=== PATIENT | female | born 1950 | race Caucasian/White ===

== ENCOUNTER → 2017-02-06 | Outpatient (CLI) | payer OTHER | LOC: MMPC 09:00 | PROVIDERS: ATTEND Nurse Practitioner Family | DX: B18.2 Chronic viral hepatitis C (principal); I10 Essential (primary) hypertension; F32.9 Major depressive disorder, single episode, unspecified; E66.9 Obesity, unspecified; R87.610 Atypical squamous cells of undetermined significance on cytologic smear of cervix (ASC-US); Z80.0 Family history of malignant neoplasm of digestive organs | CPT/HCPCS: G0101; G0439; G0463 ==

== ENCOUNTER → 2017-02-07 | Outpatient (CLI) | payer OTHER ==
[2017-02-07 10:48] LABS: BASOPHILS # (AUTO) 0.01 10*3/UL; BASOPHILS % (AUTO) 0.1 % (0-1); EOSINOPHILS # (AUTO) 0 10*3/UL; EOSINOPHILS % (AUTO) 0 % (0-8); HEMATOCRIT 44.6 % (37.0-47.0); HEMOGLOBIN 15.1 g/dL (12.0-16.0); LYMPHOCYTES # (AUTO) 3.34 10*3/uL; MEAN CORPUSCULAR HEMOGLOBIN 29.5 PG (27-31); MEAN CORPUSCULAR HGB CONC 33.9 g/dL (33-37); MEAN CORPUSCULAR VOLUME 87.1 FL (81-99); MEAN PLATELET VOLUME 8.9 FL (7.4-12.2); MONOCYTES # (AUTO) 1.04 10*3/UL (0.3-0.8); MONOCYTES % (AUTO) 9.3 % (5-15); NEUTROPHILS # (AUTO) 6.75 10*3/UL; NEUTROPHILS % (AUTO) 60.4 % (50-80); RED BLOOD COUNT 5.12 10^6/uL (4.20-5.40)
[2017-02-07 10:55] LABS: PLATELET MORPHOLOGY COMMENT NORMAL MORPHOLOGY (NORM); RBC MORPHOLOGY COMMENT NORMAL MORPHOLOGY (NORM); WBC MORPHOLOGY COMMENT NORMAL MORPHOLOGY (NORM)
[2017-02-07 11:08] LABS: BLOOD UREA NITROGEN 14 mg/dL (7-22); CALCIUM 8.9 mg/dL (8.7-10.7); EST GLOMERULAR FILTRATION > 60 (>60 ml/min/1.73m(2)); SERUM ALBUMIN 3.9 g/dL (3.5-4.8)
[2017-02-07 11:56] LABS: CHOL/HDL RATIO 3.71 RATIO (0-4.0); LDL CHOLESTEROL,CALCULATED 89.4 mg/dL
== END ==
LOC: LAB 10:27
PROVIDERS: ATTEND Nurse Practitioner Family
DX: I10 Essential (primary) hypertension (principal); E66.9 Obesity, unspecified; B18.2 Chronic viral hepatitis C; F32.0 Major depressive disorder, single episode, mild; Z80.0 Family history of malignant neoplasm of digestive organs
CPT/HCPCS: 36415; 80053; 80061; 84443; 85025

== ENCOUNTER → 2017-02-10 | Outpatient (CLI) | payer OTHER | LOC: MMPC 11:11 | PROVIDERS: ATTEND Surgery | DX: Z80.0 Family history of malignant neoplasm of digestive organs (principal) | CPT/HCPCS: 99202; G0463 ==

== ENCOUNTER 2017-02-24 07:46 | Day surgery (SDC) | payer OTHER ==
[~2017-02-24 07:46] MED LIST: LIDOCAINE W/ SODIUM BICARB 0.5 ML SYR ONE; Lactated Ringers 1,000 ML PRIMARY IV ONE
[2017-02-24] MEDS ORDERED: Lactated Ringers 1,000 ML PRIMARY IV ONE (09:12)
[2017-02-24] MEDS ORDERED: IPRATROPIUM/ALBUTEROL SULFATE 3 ML NEB NEB PRN (09:34)
[2017-02-24] MEDS ORDERED: IPRATROPIUM/ALBUTEROL SULFATE 3 ML NEB NEB ONE (09:37)
--- NOTE | 2017-02-24 09:40 | GEN.OPNOTE ---
Colonoscopy Procedure Note Surgery Date: 02/24/17 Preoperative Diagnosis: Colon cancer screening. Family history of colon cancer. Postoperative Diagnosis: Colon cancer screening. Family history of colon cancer. Multiple colonic polyps. Procedure: Colonoscopy with hot snare polypectomy, multiple. Multiple small polyps coagulated with no specimens obtained. Surgeon: Kwasi Fowler MD Anesthesia Provider: Carli Velazquez CRNA Anesthesia Type: MAC Indications: Patient is a 66-year-old female. She has never had a colonoscopy despite a family history of colon cancer. She presents for colonoscopy. Findings: Prep : [Very good] Cecum : [Normal] Ascending : [Normal] Transverse : [Proximal transverse colon polyp. Hot snare polypectomy performed. Distal transverse colon polyps. Hot snare polypectomy performed x2. Multiple small polyps were cauterized and destroyed.] Sigmoid : [Polyp at 25 cm. Hot snare polypectomy performed. Base cauterized. Small polyp at 30 cm cauterized and destroyed] Rectum : [Normal] Digital Rectal Exam : [Normal] A lubricated flexible colonoscope was inserted and passed to the blind end of the cecum. The appendiceal orifice and ileocecal valve were clearly seen. Air was aspirated as the scope was withdrawn. There were multiple colonic polyps. Proximal transverse colon polyp was removed with a hot snare. Distal transverse colon polyps were removed with a hot snare. Multiple other small polyps were cauterized. Sigmoid colon polyp was removed with a hot snare. The base of all the polyps were cauterized. There was another small polyp at 30 cm from the anal verge which was cauterized and destroyed. Hemostasis was assured. Otherwise the colonoscopy was normal without other tumors, neoplastic masses, infectious or inflammatory processes identified. The scope was withdrawn completing the procedure. Patient tolerated the entire procedure well without complication. She was taken to outpatient surgery in stable condition. Follow-up will be with my office on an as needed basis. We will call the biopsy results when available. Likely will recommend follow-up colonoscopy in 2 years secondary to the number of small polyps identified. Await pathologic analysis.
[2017-02-24 10:41] VITALS: TEMP 97.1
[2017-02-24 10:51] VITALS: RESP 16
== END 2017-02-24 10:19 | disposition home or self-care (01) ==
LOC: SDSC 07:46
PROVIDERS: ATTEND Surgery
DX: Z12.11 Encounter for screening for malignant neoplasm of colon (principal); Z80.0 Family history of malignant neoplasm of digestive organs; K63.5 Polyp of colon
CPT/HCPCS: 45385; J2704; J7620; J7120